=== PATIENT | male | born 1995 | race African-American/Black ===

== ENCOUNTER 2018-12-18 11:14 | Emergency (ER) | payer MEDICAID ==
[~2018-12-18] VITALS: Ht 177.8 cm; Wt 70.5 kg
[2018-12-18 11:18] VITALS: BP 129/67; Ht 177.8 cm; Wt 70.5 kg
[2018-12-18] MEDS ORDERED: TYLENOL W/CODEI1 TAB PO (12:10)
[2018-12-18] MEDS ORDERED: CLEOCIN HCL300 MG PO (12:10)
== END 2018-12-18 12:23 | disposition home or self-care (01) ==
LOC: D.ER 11:14
DX: L03.317 Cellulitis of buttock (principal)

== ENCOUNTER 2019-06-09 01:04 | Emergency (ER) | payer SELFPAY ==
[~2019-06-09] VITALS: Ht 177.8 cm; Wt 75.0 kg
[~2019-06-09 01:04] MED LIST: CLEOCIN HCL300 MG PO; TYLENOL W/CODEI1 TAB PO
[2019-06-09 01:14] VITALS: Ht 177.8 cm; Wt 75.0 kg
[2019-06-09 03:11] VITALS: BP 144/82
== END 2019-06-09 03:09 | disposition home or self-care (01) ==
LOC: D.ER 01:04
DX: S01.111A Laceration without foreign body of right eyelid and periocular area, initial encounter (principal); W22.8XXA Striking against or struck by other objects, initial encounter; K03.81 Cracked tooth; S09.90XA Unspecified injury of head, initial encounter